=== PATIENT | female | born 1960 | race Caucasian/White ===

== ENCOUNTER → 2021-10-07 | Outpatient (CLI) | payer OTHER ==
[~2021-10-07] MED LIST: BUPROPION HCL100 MG PO; BUSPIRONE HCL30 MG PO; LASIX40 MG PO; LINZESS145 MCG PO; METHADONE PO; NEURONTIN800 MG PO; NORVASC10 MG PO
== END ==
LOC: EXRD 09-18 14:30
DX: M79.89 Other specified soft tissue disorders (principal)
CPT/HCPCS: 93971

== ENCOUNTER → 2021-11-26 | Outpatient (CLI) | payer OTHER | LOC: US 11-19 10:30 → MAMO 11-19 14:00 → US 11-20 08:00 | DX: R74.8 Abnormal levels of other serum enzymes (principal); K82.8 Other specified diseases of gallbladder | CPT/HCPCS: 76705 ==

== ENCOUNTER → 2022-01-13 | Outpatient (CLI) | payer OTHER | LOC: EXRD 09:14 | DX: M85.80 Other specified disorders of bone density and structure, unspecified site (principal) | CPT/HCPCS: 77080 ==

== ENCOUNTER → 2022-02-09 | Day surgery (SDC) | payer OTHER ==
[2022-02-09 07:19] LABS: HEMOGLOBIN 11.7 gm/dl (12.3-15.3); RED BLOOD COUNT 3.52 M/UL (4.00-5.10); WHITE BLOOD COUNT 5.6 K/UL (4.5-11.0)
[2022-02-09 07:39] LABS: BUN/CREATININE RATIO 22 (0-10)
== END | disposition home or self-care (01) ==
LOC: OR 05:24
PROVIDERS: Anesthesiology; Orthopaedic Surgery
DX: S52.572A Other intraarticular fracture of lower end of left radius, initial encounter for closed fracture (principal); I10 Essential (primary) hypertension; W01.0XXA Fall on same level from slipping, tripping and stumbling without subsequent striking against object, initial encounter
CPT/HCPCS: 71045; 73110; 76000; 80048; 85027; 93005; C1713; J0690; J1100; J1170; J2001; J2250; J2405; J2704; J3010